=== PATIENT | female | born 1945 | race Two or more races ===

== ENCOUNTER 2018-11-20 15:24 | Inpatient (IN) | payer OTHER ==
[~2018-11-20] VITALS: Ht 157.5 cm; Wt 65.3 kg
[2018-12-05] MEDS ORDERED: LOSARTAN POTAS100 MG PO (08:23)
[2018-12-05] MEDS ORDERED: DILTIAZEM ER300 MG PO (08:24)
[2018-12-05] MEDS ORDERED: SYNTHROID125 MCG PO (08:24)
[2018-12-05] MEDS ORDERED: LIPO-FLAVONOID1 EACH PO (08:25)
[2018-12-05] MEDS ORDERED: ZOCOR40 MG PO (08:25)
== END 2018-12-16 13:30 | disposition home or self-care (01) | DRG 331 ==
LOC: SURG 12-05 09:15 → O/R 12-12 07:12 → SURH 12-12 07:12 → SURG 12-12 09:15 → SURH 12-12 13:23 → SURG 12-12 21:30 → SURH 12-16 13:30
PROVIDERS: ADMIT Colon & Rectal Surgery
PROC: 07TB4ZZ Resection of Mesenteric Lymphatic, Percutaneous Endoscopic Approach (ICD-10-PCS; 2018-12-12)
PROC: 0DTF4ZZ Resection of Right Large Intestine, Percutaneous Endoscopic Approach (ICD-10-PCS; principal; 2018-12-12 21:30)
PROC: B030ZZZ Magnetic Resonance Imaging (MRI) of Brain (ICD-10-PCS; 2018-12-15)
DX: C18.2 Malignant neoplasm of ascending colon (principal); R59.0 Localized enlarged lymph nodes; I10 Essential (primary) hypertension
CPT/HCPCS: 70551

== ENCOUNTER 2018-12-05 07:53 | Emergency (ER) | payer OTHER ==
[~2018-12-05] VITALS: Ht 160 cm; Wt 65.3 kg
[2018-12-05] MEDS ORDERED: LOSARTAN POTAS100 MG PO (08:23)
[2018-12-05] MEDS ORDERED: DILTIAZEM ER300 MG PO (08:24)
[2018-12-05] MEDS ORDERED: SYNTHROID125 MCG PO (08:24)
[2018-12-05] MEDS ORDERED: ZOCOR40 MG PO (08:25)
[2018-12-05] MEDS ORDERED: LIPO-FLAVONOID1 EACH PO (08:25)
== END 2018-12-05 10:17 | disposition home or self-care (01) ==
LOC: ER 07:53
DX: R42 Dizziness and giddiness (principal)

== ENCOUNTER 2019-01-17 08:35 | Day surgery (SDC) | payer OTHER ==
[~2019-01-17 08:35] MED LIST: DILTIAZEM ER300 MG PO; LIPO-FLAVONOID1 EACH PO; LOSARTAN POTAS100 MG PO; SYNTHROID125 MCG PO; ZOCOR40 MG PO
== END 2019-01-17 13:45 | disposition home or self-care (01) ==
LOC: CIR.AMB 08:35
DX: C18.3 Malignant neoplasm of hepatic flexure (principal)
CPT/HCPCS: 36561; C1751

== ENCOUNTER 2019-12-14 08:39 | Day surgery (SDC) | payer OTHER | END 2019-12-14 15:15 | disposition home or self-care (01) | LOC: AMB-ENDOS 08:39 | PROVIDERS: ATTEND Colon & Rectal Surgery | DX: D13.2 Benign neoplasm of duodenum (principal); Z20.828 Contact with and (suspected) exposure to other viral communicable diseases; K64.1 Second degree hemorrhoids ==

== ENCOUNTER 2020-10-31 06:00 | Day surgery (SDC) | payer OTHER | END 2020-10-31 10:55 | disposition home or self-care (01) | LOC: AMB-ENDOS 06:00 | PROVIDERS: ATTEND Colon & Rectal Surgery | DX: K62.89 Other specified diseases of anus and rectum (principal); K64.1 Second degree hemorrhoids; Z20.822 Contact with and (suspected) exposure to COVID-19 ==